=== PATIENT | male | born 1965 | race Caucasian/White ===

== ENCOUNTER 2019-12-11 15:01 | Outpatient (CLI) | payer OTHER, SELFPAY ==
[2019-12-11 16:19] LABS: Hematocrit 44.2 % (42.0-52.0); Hemoglobin 14.8 g/dL (14.0-18.0); Mean Corpuscular HGB Conc 33.5 g/dl (32-36); Mean Corpuscular Hemoglobin 29.2 pg (26-34); Mean Corpuscular Volume 87.2 fl (80-100); Mean Platelet Volume 10.3 fl (7.4-10.4); Platelet Count Result 217 k/mm3 (150-375); Red Blood Count 5.07 M/mm3 (4.6-6.20); Red Cell Distribution Width 13.1 % (11.5-14.5); White Blood Count 5.8 K/mm3 (4.5-10.0)
[2019-12-11 16:32] LABS: Alanine Aminotransferase 74 U/L (4-50); Albumin Level 4.3 g/dL (3.5-5.1); Alkaline Phosphatase 118 U/L (38-126); Anion Gap 7 mmol/L (8-16); Aspartate Amino Transferase 57 U/L (17-59); Bilirubin,Total 0.4 mg/dL (0.2-1.3); Blood Urea Nitrogen 14 mg/dL (9-20); Carbon Dioxide 28 mmol/L (22-30); Chloride 104 mmol/L (98-107); Cholesterol 180 mg/dL (0-200); Estimated Glomerular Filt Rate > 60; Glucose 110 mg/dL (75-110); HDL Direct 43 mg/dL; Potassium 4.3 mmol/L (3.4-5.0); Sodium 139 mmol/L (137-145); Triglycerides 170 mg/dL (<150)
[2019-12-11 16:43] LABS: LDL Cholesterol Direct 124 mg/dL
[2019-12-11 17:01] LABS: Prostate Specific Antigen 0.3 ng/mL (< OR = 4.0)
== END 2019-12-11 15:02 | disposition home or self-care (01) ==
PROVIDERS: PCP Family Medicine; Visit Provider Nurse Practitioner Family
DX: T14.8XXA Other injury of unspecified body region, initial encounter (principal); R21 Rash and other nonspecific skin eruption; I10 Essential (primary) hypertension; Z12.5 Encounter for screening for malignant neoplasm of prostate; F41.9 Anxiety disorder, unspecified; F32.9 Major depressive disorder, single episode, unspecified
CPT/HCPCS: 36415; 80053; 80061; 84153; 84443; 85027; G0103

== ENCOUNTER 2020-05-06 15:24 | Emergency (ER) | payer OTHER, SELFPAY ==
--- NOTE | ~2020-05-06 | XR_ITS ---
EXAMINATION: XR chest 2V EXAM DATE: 05/06/2020 16:27 INDICATION: Shortness of breath for 3 days. History of asthma. TECHNIQUE: Frontal and lateral projections of the chest obtained and reviewed. Comparison is made to prior examination from 06/09/18. FINDINGS: The lungs are clear. There are no pleural effusions. The cardiomediastinal silhouette is within normal limits. There is no pneumothorax suspected. The bones and soft tissues are unremarkab le. There is no significant interval change. IMPRESSION: No acute cardiopulmonary findings. Reviewed, dictated and finalized at location A. RESEARCH ENGINEER
[2020-05-06 16:00] VITALS: BP 129/65; PULSE 66; RESP 20; TEMP 37; O2SAT 93
--- NOTE | 2020-05-06 16:38 | ED.URI ---
HPI - URI/Sore Throat General Chief Complaint: Upper Respiratory Infection Stated Complaint: Cold/Flu symptoms Time Seen by Provider: 05/06/20 16:26 Source: patient and RN notes reviewed Mode of arrival: ambulatory Limitations: no limitations History of Present Illness HPI Narrative: Patient presents today complaining of a 3-day history of bilateral maxillary sinus pain, bilateral ear pain, postnasal drip, and shortness of breath with occasional wheezing. Denies cough, fever, sore throat, congestion, rhinorrhea, nausea, vomiting, diarrhea. History of asthma. He has been using his albuterol inhaler, which does not provide much relief. He has also been using some [id number]-[id number] sinus medication which helps mildly. Currently rates his pain 07/06. Denies exposure to COVID-19, but does work outside the home. MD elicited complaint: sinus pain and other (Shortness of breath) Related Data Home Medications Medication Instructions Recorded Confirmed omeprazole 20 mg capsule,delayed 20 mg PO BID 01/01/20 release Allergies Allergy/AdvReac Type Severity Reaction Status Date / Time No Known Allergies Allergy Verified 01/01/20 12:25 Review of Systems Review of Systems: Narrative: CONSTITUTIONAL: Denies body aches, fever, chills, or sweats. EYES: Denies visual changes, redness, or discharge. ENT: Denies rhinorrhea, congestion, sore throat. + Bilateral ear pain, postnasal drip, sinus pain CARDIOVASCULAR: Denies chest pain, palpitations, or edema. RESPIRATORY: Denies cough. + Shortness of breath with occasional wheezing GASTROINTESTINAL: Denies abdominal pain, nausea, vomiting, or diarrhea. GENITOURINARY: Denies dysuria or hematuria. SKIN: Denies rash, itching, or wounds. MUSCULOSKELETAL: Denies back pain, joint pain, or myalgia. NEUROLOGIC: Denies headache, numbness, tingling, or weakness. PSYCH: Denies depression or anxiety. [facility] Past Medical History Medical History (Updated 05/06/20 @ 17:15 by Irene Borrego, DEMOND, ) Asthma Hypertension Family History Family History Other Hypertension Social History Social History Smoking status: Never smoker Gender identity (if verbalized by the patient): Male Comments At time of signature, I have reviewed and agree with nursing past medical, surgical, social and family history unless otherwise noted. Please see nursing chart for further information. There is no relevant family history pertinent to the presenting complaint Exam Narrative: Exam Narrative: GENERAL: Well-appearing, well-nourished, and in no acute distress. HEAD: Normocephalic, atraumatic. EYES: EOMI. No redness or drainage. Conjunctivae normal. ENT: Mucous membranes pink and moist. Nares clear. Nasal turbinates are normal. No rhinorrhea. TMs normal bilaterally. Throat normal. Uvula midline. NECK: Normal AROM. Supple. No lymphadenopathy. CHEST: No respiratory distress. Clear to auscultation. Patient does not seem in any distress. HEART: Regular rate and rhythm. No murmur appreciated. Normal peripheral pulses. EXTREMITIES: Normal range of motion. No edema. SKIN: Warm, dry, no rash. Capillary refill normal. Normal skin turgor. NEURO: No focal deficits. Alert and oriented x3. Gait steady. PSYCH: Normal affect. No signs of depression or anxiety. Course Course Emergency Course: 1712-after DuoNeb, patient states he is feeling better. Pulse is 68 with a pulse ox of 94%. Discussed plan to prescribe steroids. Patient states he will get his albuterol nebs picked up at the pharmacy. Explained to him that his rapid Covid test is negative, however, that he still could have Covid and that he should be quarantining based on CDC guidelines. Vital Signs Vital signs: Vital Signs Temperature 98.6 F 05/06/20 16:00 Pulse Rate 66 05/06/20 16:00 Respiratory Rate 20 05/06/20 16:00 Blo
[2020-05-06] MEDS: ALBUTEROL SULFATE NEB 2.5 MG/3 ML INH INHALATION (16:42)
[2020-05-06] MEDS: IPRATROPIUM BR 0.02% INH SOLN 0.5 MG/2.5 ML VIAL INHALATION (16:43)
--- NOTE | 2020-05-06 17:18 | PC.NURSE ---
pulse 68 and sat 94 after neb, states feels better
== END 2020-05-06 17:35 | disposition home or self-care (01) ==
PROVIDERS: Emergency Provider Nurse Practitioner; PCP Family Medicine
DX: B34.9 Viral infection, unspecified (principal); J45.901 Unspecified asthma with (acute) exacerbation; Z20.822 Contact with and (suspected) exposure to COVID-19; I10 Essential (primary) hypertension
CPT/HCPCS: 71046; 87426; 94640; 99213; C9803; G0463

== ENCOUNTER 2020-07-03 11:25 | Emergency (ER) | payer OTHER, SELFPAY ==
[2020-07-03 11:34] VITALS: BP 143/69; PULSE 70; RESP 16; TEMP 36.8; O2SAT 98
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
[2020-07-03] MEDS: TETANUS,DIPHTHERIA,AC PERTUSSIS ADULT (0.5 ML) BOOSTRIX IM (12:16)
== END 2020-07-03 12:41 | disposition home or self-care (01) ==
PROVIDERS: Emergency Provider Nurse Practitioner; PCP Family Medicine
DX: S00.31XA Abrasion of nose, initial encounter (principal); Y04.0XXA Assault by unarmed brawl or fight, initial encounter; Z23 Encounter for immunization; J45.909 Unspecified asthma, uncomplicated; I10 Essential (primary) hypertension
CPT/HCPCS: 90471; 90715; 99212; G0463

== ENCOUNTER 2021-05-03 11:48 | Outpatient (CLI) | payer OTHER, SELFPAY ==
--- NOTE | ~2021-05-03 | XR_ITS ---
XR chest 2V DATE: 05/03/2021 12:01 INDICATION: Cough, chest tightness TECHNIQUE: PA and lateral views COMPARISON: 05/06/2020 2 view chest FINDINGS: Normal heart size. No hilar or mediastinal enlargement. No pulmonary infiltrate or consolid ation, pleural effusion or pulmonary vascular congestion or pneumothorax. Included skeletal structures are unremarkable. IMPRESSION: No active cardiopulmonary disease Reviewed, dictated and finalized at location A. EL PLANER
== END 2021-05-03 11:49 | disposition home or self-care (01) ==
LOC: ANHIMG 11:52
PROVIDERS: PCP Family Medicine; Visit Provider Nurse Practitioner Family
DX: R05.9 Cough, unspecified (principal)
CPT/HCPCS: 71046

== ENCOUNTER 2021-08-02 12:14 | Outpatient (CLI) | payer OTHER, SELFPAY ==
--- NOTE | ~2021-08-02 | XR_ITS ---
EXAM: [id number]_CR HISTORY: M54.2 LEFT SIDE AND POSTERIOR NECK PAIN, NO INJURY COMPARISON: CT soft tissue neck with contrast 09/01/2013. FINDINGS: Craniocervical association and atlantoaxial joint are normal. No prevertebral soft tissue swelling. 3 mm anterolisthesis of C6 on C7. Facets aligned. Vertebral body heights are maintained. Mi ld facet hypertrophy at C5-6 and C6-7. Mild disc space narrowing at C5-6. IMPRESSION: Grade 1 anterolisthesis of C6 on C7. Mild degenerative disc disease at C5-6. Mild facet arthropathy i n the lower cervical spine. Reviewed, dictated and finalized at location K. IMPRESSION: Grade 1 anterolisthesis of C6 on C7. Mild degenerative disc disease at C5-6. Mi ld facet arthropathy in the lower cervical spine.
[2021-08-02 12:34] LABS: Hematocrit 47.7 % (42.0-52.0); Hemoglobin 16.5 g/dL (14.0-18.0); Mean Corpuscular HGB Conc 34.6 g/dl (32-36); Mean Corpuscular Hemoglobin 29.7 pg (26-34); Mean Corpuscular Volume 85.9 fl (80-100); Mean Platelet Volume 9.8 fl (7.4-10.4); Platelet Count Result 228 k/mm3 (150-375); Red Blood Count 5.55 M/mm3 (4.6-6.20); Red Cell Distribution Width 13.5 % (11.5-14.5); White Blood Count 6.5 K/mm3 (4.5-10.0)
--- NOTE | 2021-08-02 12:35 | ECG_ITS ---
Measurements Intervals [place] Rate: 64 P: 7 NM: 188 QRS: 30 QRSD: 98 T: 42 QT: 377 QTc: 389 Interpretive Statements SINUS RHYTHM NO PREVIOUS ECG AVAILABLE FOR COMPARISON Electronically Signed On 08-02-2021 14:25:52 CDT by Leanne Reagan M.D.
[2021-08-02 12:48] LABS: Alanine Aminotransferase 63 U/L (4-50); Albumin Level 4.6 g/dL (3.5-5.1); Alkaline Phosphatase 94 U/L (38-126); Anion Gap 8 mmol/L (8-16); Aspartate Amino Transferase 52 U/L (17-59); Bilirubin,Total 0.6 mg/dL (0.2-1.3); Blood Urea Nitrogen 15 mg/dL (9-20); Calcium 9.6 mg/dL (8.4-10.2); Carbon Dioxide 27 mmol/L (22-30); Chloride 104 mmol/L (98-107); Cholesterol 215 mg/dL (0-200); Estimated Glomerular Filt Rate > 60; Glucose 106 mg/dL (65-110); HDL Direct 53 mg/dL; Potassium 4.2 mmol/L (3.4-5.0); Sodium 139 mmol/L (137-145); Triglycerides 157 mg/dL (<150)
[2021-08-02 12:49] LABS: Rheumatoid Factor < 8.6 IU/ML (<12)
[2021-08-02 12:59] LABS: LDL Cholesterol Direct 134 mg/dL
[2021-08-02 13:19] LABS: Prostate Specific Antigen 0.4 ng/mL (< OR = 4.0)
[2021-08-02 13:32] LABS: Vitamin D 25 Hydroxy 27.4 ng/mL
== END 2021-08-02 12:15 | disposition home or self-care (01) ==
PROVIDERS: PCP Family Medicine; Visit Provider Nurse Practitioner Family
DX: R07.89 Other chest pain (principal); I10 Essential (primary) hypertension; Z13.1 Encounter for screening for diabetes mellitus; M50.322 Other cervical disc degeneration at C5-C6 level; E55.9 Vitamin D deficiency, unspecified; R20.2 Paresthesia of skin; Z13.29 Encounter for screening for other suspected endocrine disorder; M25.50 Pain in unspecified joint; Z13.220 Encounter for screening for lipoid disorders; Z12.5 Encounter for screening for malignant neoplasm of prostate
CPT/HCPCS: 36415; 72040; 80053; 80061; 82306; 82607; 84153; 84443; 85027; 86430; 93005; G0103

== ENCOUNTER 2021-12-02 21:11 | Emergency (ER) | payer OTHER, SELFPAY ==
[2021-12-02] VITALS (13 sets, daily range): BP systolic 118–142; BP diastolic 62–78; PULSE 55–67; RESP 12–22; TEMP 36.4; O2SAT 91–95
--- NOTE | ~2021-12-02 | CT_ITS ---
EXAMINATION: CT abdomen pelvis wo con DATE: 12/02/2021 22:04 INDICATION: Right upper quadrant and epigastric abdominal pain, nausea. History kidney stones. TECHNIQUE: Computed tomography (CT) of the abdomen and pelvis was performed without intravenous contr ast. Automated exposure control and iterative reconstruction technique were employed. Exam dose: 661 .60 mGy-cm total exam DLP. COMPARISON: 04/2016 CT abdomen pelvis FINDINGS: The lung bases are clear of infiltrate or consolidation. Normal heart size. No pericardial or pleural effusion. Diffuse hepatic steatosis. No hepatic space-occupying mass lesion is evident. The gallbladder is pres ent. No pericholecystic fluid or fat stranding. No bile duct or pancreatic duct dilatation. Normal splenic size. Normal morphology of the adrenal glands. There are 2 punctate nonobstructing left renal calculi. No ureteral calculus or hydroureteronephrosis . There is abdominal aortic and iliac arterial calcification but no aneurysm. No intraperitoneal or ret roperitoneal or pelvic mass lesion or adenopathy or ascites. Minimal colonic diverticulosis. Normal appendix. No bowel obstruction or intraperitoneal free air. Small fat-containing inguinal hernias, right larger than left. Included skeletal structures are unremarkable. IMPRESSION: 2 pinpoint nonobstructing left renal calculi No ureteral calculus or hydroureteronephrosis Normal appendix. Minimal colonic diverticulosis. The gallbladder is present. Ultrasound examination would provide greater detail and more confident ev aluation for cholelithiasis if clinically desired. Reviewed, dictated and finalized at Location A. Reviewed, dictated and finalized at location A. IMPRESSION: 2 pinpoint nonobstructing left renal calculi No ureteral calculus or hydroureteronephrosis Normal appendix. Minimal colonic diverticulosis. The gallbladder is present. Ultrasound examination would provide greater detail and more confident evaluation for cholelithiasis if clinically desired.
--- NOTE | 2021-12-02 21:24 | ECG_ITS ---
Measurements Intervals [place] Rate: 57 P: 7 [place]: 208 QRS: 31 QRSD: 96 T: 31 QT: 409 QTc: 399 Interpretive Statements SINUS BRADYCARDIA OTHERWISE WITHIN NORMAL LIMITS NO PREVIOUS ECG AVAILABLE FOR COMPARISON Electronically Signed On 12-03-2021 8:23:46 CDT by Carlton Huang M.D.
[2021-12-02 21:35] LABS: Basophils Percent Auto 0.6 % (0.2-1.2); Eosinophils Absolute Auto 0.1 K/mm3 (0-0.3); Eosinophils Percent Auto 1.6 % (0-4.4); Hematocrit 43.9 % (42.0-52.0); Hemoglobin 14.9 g/dL (14.0-18.0); Immature Granulocyte Absolute 0.02 K/mm3 (0.00-0.031); Immature Granulocyte Percent A 0.4 % (0-0.5); Lymphocytes Absolute Auto 0.81 K/mm3 (0.9-3.2); Lymphocytes Percent Auto 16.2 % (18.3-44.2); Mean Corpuscular HGB Conc 33.9 g/dl (32-36); Mean Corpuscular Hemoglobin 29.6 pg (26-34); Mean Corpuscular Volume 87.1 fl (80-100); Mean Platelet Volume 9.9 fl (7.4-10.4); Monocytes Absolute Auto 0.3 K/mm3 (0.1-0.6); Monocytes Percent Auto 6.6 % (2.6-8.5); Neutrophils Absolute Auto 3.7 K/mm3 (1.3-6.7); Neutrophils Percent Auto 74.6 % (45.5-73.1); Platelet Count Result 196 k/mm3 (150-375); Red Blood Count 5.04 M/mm3 (4.6-6.20); Red Cell Distribution Width 13.1 % (11.5-14.5)
--- NOTE | 2021-12-02 21:42 | ED.GENADULT ---
HPI - General Adult General Chief complaint: Syncope Stated complaint: syncopal episode Time Seen by Provider: 12/02/21 21:20 History of Present Illness HPI narrative: this is a 55-year-old male presenting to the ED with abdominal pain and syncope.. The patient says he has been experiencing Sharp right-sided abdominal pain on his right flank that radiates to his groin as well as in the epigastric area since yesterday. It is 10/10 at its worst but is currently 1/10. It was sudden in onset. He says this feels similar to kidney stones in the past. There are no exacerbating or alleviating factors. The patient has noticed that he has had hematuria, fever and chills. He denies dysuria, urinary urgency frequency or diarrhea. Related Data Home Medications Medication Instructions Recorded Confirmed metoprolol tartrate 25 mg tablet mg 12/02/21 omeprazole 20 mg capsule,delayed mg 12/02/21 release sertraline 25 mg tablet mg 12/02/21 Allergies Allergy/AdvReac Type Severity Reaction Status Date / Time No Known Allergies Allergy Verified 12/02/21 21:18 Review of Systems Review of Systems: CONSTITUTIONAL: Denies night sweats. EYES: No eye pain ENT: Denies rhinorrhea CARDIOVASCULAR: Denies palpitations RESPIRATORY: Denies hemoptysis GASTROINTESTINAL: Denies hematemesis GENITOURINARY: Admits hematuria. SKIN: Denies rash MUSCULOSKELETAL: Denies myalgia. NEUROLOGIC: Denies weakness. PSYCHIATRIC: Denies delusions PMFSH Past Medical History Medical History (Updated 12/02/21 @ 23:51 by Jono Lauren MD) Kidney stones Pericarditis Ulcerative colitis Social History Social History (Updated 12/02/21 @ 21:46 by Jono Lauren MD) Social History: patient denies use of alcohol cigarettes or illicit drugs. Exam Narrative: APPEARANCE: No apparent distress. Head atraumatic. EYES: PERRLA/EOMI, NOSE: Normal no drainage NECK: Supple, Trachea midline RESPIRATORY: CTAB, No increased work of breathing. CARDIOVASCULAR: S1S2 appreciated ABDOMINAL: Abdomen is with vitamin B12 distended, he has tenderness to palpation the right upper quadrant and epigastric area. There is no guarding or rebound. MUSCULOSKELETAl: No obvious deformities NEURO: Alert. Moving 4/4 extremities SKIN:: Warm, dry. Normal color PSYCHIATRIC: Normal affect EKG interpretation: Rhythm [sinus], Rate 57, [place] -[normal], [place] -[normal], QRS [narrow], QTC [normal], T waves -[negative for concerning inversions], ST Segments - [Negative for concerning elevations] Final interpretations: [Normal Sinus Rhythm] Course Vital Signs Vital signs: Vital Signs Temperature 97.6 F 12/02/21 21:09 Pulse Rate 59 L 12/02/21 21:09 Respiratory Rate 14 12/02/21 21:09 Blood Pressure 128/78 12/02/21 21:09 Pulse Oximetry 95 12/02/21 21:09 Oxygen Delivery Room Air 12/02/21 21:09 Temperature 97.6 F 12/02/21 21:09 Pulse Rate 66 12/02/21 22:36 Respiratory Rate 19 12/02/21 22:36 Blood Pressure 127/68 12/02/21 21:42 Pulse Oximetry 95 12/02/21 22:36 Oxygen Delivery Room Air 12/02/21 21:09 Medical Decision Making MDM Narrative Medical decision making narrative: 55-year-old male presenting to ED after syncopal event. Syncopal event after happen after the patient had a bowel movement. He then laid on the floor. His other complaint appears to be abdominal pain that is consistent with kidney stones. Lab work and a CT abdomen pelvis have been ordered. The patient's syncopal event occurred after he was having a bowel movement on the toilet. Patient's episode of syncope is not felt to be due to high risk cause. The event was brief, and the patient has returned to normal mental status. EKG is reviewed with without high risk changes for syncope. There are no signs of prolonged QT or Brugada syndrome. Patient ambulates with steady gait is felt to be a reasonable candidate for further evaluation on an outpatient ba
[2021-12-02 21:44] LABS: Alanine Aminotransferase 367 U/L (6-50); Albumin Level 4.1 g/dL (3.5-5.1); Alkaline Phosphatase 124 U/L (38-126); Anion Gap 8 mmol/L (8-16); Aspartate Amino Transferase 490 U/L (17-59); Bilirubin,Total 2.7 mg/dL (0.2-1.3); Blood Urea Nitrogen 11 mg/dL (9-20); Calcium 9.2 mg/dL (8.4-10.2); Carbon Dioxide 25 mmol/L (22-30); Chloride 105 mmol/L (98-107); Estimated CRCL calculation 88 ml/min; Estimated Glomerular Filt Rate > 60; Glucose 160 mg/dL (65-110); Potassium 3.8 mmol/L (3.4-5.0); Sodium 138 mmol/L (137-145)
[2021-12-02] MEDS: ACETAMINOPHEN 500 MG TABLET 1000 MG PO (21:56)
[2021-12-02] MEDS: SODIUM CHLORIDE 0.9% IV 1,000 ML 999 ML IV CONT (21:56)
[2021-12-02] MEDS: IBUPROFEN 400 MG TABLET 800 MG PO (21:56)
--- NOTE | 2021-12-02 21:57 | PC.NURSE ---
Patient being taken to CT via stretcher.
[2021-12-02 22:10] LABS: Lipase 88 U/L (23-300)
[2021-12-02 22:13] LABS: Appearance Urine Clear (Clear); Bilirubin Urine 2+ (Negative); Blood Urine Negative (Negative); Color Urine Yellow (Yellow); Glucose Urine UA Negative (Negative); Ketones Urine Trace mg/dL (Negative); Leukocyte Esterase Ur Negative LEU/UL (Negative); Nitrate Urine Negative (Negative); Protein Urine Negative (Negative); Specific Grav Ur >= 1.030 (1.001-1.035); pH Urine 5.5 (5.0-9.0)
[2021-12-02 22:17] LABS: Bacteria Urine Trace /hpf; Mucus Urine Rare /lpf; RBC Urine 0-2 /hpf (0-2); Squamous Epithelial Cell Urine Rare /hpf (Few); WBC Urine 0-3 /hpf
[2021-12-02 22:18] LABS: Add Urine Microscopic? YES
[2021-12-02 22:22] LABS: Troponin I < 0.012 ng/mL (0.000-0.034)
[2021-12-03 00:04] VITALS: BP 129/76; PULSE 91; RESP 20; O2SAT 94
== END 2021-12-03 00:05 | disposition home or self-care (01) ==
PROVIDERS: Emergency Provider Emergency Medicine; PCP Family Medicine
DX: R55 Syncope and collapse (principal); K76.0 Fatty (change of) liver, not elsewhere classified; Z87.442 Personal history of urinary calculi; R00.1 Bradycardia, unspecified
CPT/HCPCS: 36415; 74176; 80053; 81001; 83690; 84484; 85025; 93005; 96360; 99284; A9270; J7030

== ENCOUNTER 2021-12-05 10:57 | Outpatient (CLI) | payer OTHER, SELFPAY ==
[2021-12-05 11:32] LABS: Alanine Aminotransferase 157 U/L (6-50); Albumin Level 4.2 g/dL (3.5-5.1); Alkaline Phosphatase 110 U/L (38-126); Anion Gap 9 mmol/L (8-16); Aspartate Amino Transferase 61 U/L (17-59); Bilirubin,Total 0.6 mg/dL (0.2-1.3); Blood Urea Nitrogen 12 mg/dL (9-20); Calcium 9.1 mg/dL (8.4-10.2); Carbon Dioxide 25 mmol/L (22-30); Chloride 103 mmol/L (98-107); Estimated Glomerular Filt Rate > 60; Glucose 119 mg/dL (65-110); Potassium 3.7 mmol/L (3.4-5.0); Sodium 137 mmol/L (137-145)
== END 2021-12-05 10:58 | disposition home or self-care (01) ==
LOC: ANHLAB 10:59
PROVIDERS: PCP Family Medicine; Visit Provider Nurse Practitioner Family
DX: R74.8 Abnormal levels of other serum enzymes (principal)
CPT/HCPCS: 36415; 80053

== ENCOUNTER 2021-12-26 10:26 | Outpatient (CLI) | payer OTHER, SELFPAY ==
--- NOTE | ~2021-12-26 | MR_ITS ---
EXAMINATION: MR MRCP wo/w con/w 3D wo ind DATE: 12/26/2021 12:10 INDICATION: Abnormal levels of other serum enzymes. Hepatic steatosis. TECHNIQUE: Magnetic resonance imaging (MRI) of the abdomen was performed without and with 20 mL Multi beatrice intravenous contrast. Sequences included coronal T2-weighted SS-FSE, coronal T2-weighted FS SS- FSE, coronal T2-weighted FS FIESTA, axial T2-weighted FS FIESTA, axial T2-weighted FIESTA, sagittal T 2-weighted SS-FSE, axial T1-weighted dual-echo FSPGR, axial T2-weighted SS-FSE, axial T1-weighted LAV A, axial T2-weighted STIR FSE. Thick-slab T2-weighted FRFSE-XL images were obtained for magnetic reso nance cholangiopancreatography (MRCP). Rotating maximum intensity projection 3-D reconstructions of t he volumetric data were created by the technologist. Postcontrast sequences included a time course of axial T1-weighted LAVA. COMPARISON: CT dated 12/02/2021 FINDINGS: ABDOMEN MRI: Heart size is normal. No pericardial or pleural effusion. Prominent diffuse hepatic steatosis. 2.1 cm gallstones surrounded by small amount of sludge layering in the dependent aspect of the otherwise no rmal-appearing gallbladder. No gallbladder wall thickening or pericholecystic infiltrate stranding to suggest acute cholecystitis. Pancreas, spleen and adjacent small splenule, bilateral adrenal glands and kidneys are normal. Visualized portion of the bowels are normal. No pathologically enlarged abdom inal adenopathy. Bones are unremarkable with normal marrow signal throughout. ABDOMEN MRCP: No intrahepatic biliary ductal dilation. The common bile duct is normal in caliber measuring up to 5 mm and tapering smoothly in the distal duct. No evident filling defects to suggest choledocholithiasi s. The main pancreatic duct is also normal. IMPRESSION: 1. Sludge and 2.1 cm gallstone within the otherwise normal-appearing gallbladder. 2. Diffuse hepatic steatosis. Reviewed, dictated and finalized at location A. IMPRESSION: 1. Sludge and 2.1 cm gallstone within the otherwise normal-appearing gallbladde r. 2. Diffuse hepatic steatosis.
== END 2021-12-26 10:27 | disposition home or self-care (01) ==
PROVIDERS: PCP Family Medicine; Visit Provider Nurse Practitioner Family
DX: R10.11 Right upper quadrant pain (principal); R74.8 Abnormal levels of other serum enzymes; K83.9 Disease of biliary tract, unspecified; K80.20 Calculus of gallbladder without cholecystitis without obstruction; K76.0 Fatty (change of) liver, not elsewhere classified
CPT/HCPCS: 74183; 76376; A9577

== ENCOUNTER 2022-01-05 14:11 | Outpatient (CLI) | payer OTHER, SELFPAY ==
--- NOTE | 2022-01-05 14:24 | ECG_ITS ---
Measurements Intervals [place] Rate: 74 P: 34 [place]: 188 QRS: 57 QRSD: 102 T: 65 QT: 379 QTc: 422 Interpretive Statements SINUS RHYTHM BASELINE ARTIFACT- I, II, III, AVR, AVL, AVF NORMAL ECG COMPARED TO ECG 08/02/2021 12:41:23 NO SIGNIFICANT CHANGES Electronically Signed On 01-05-2022 16:25:16 CDT by Tyler Faust D.O.
[2022-01-05 14:51] LABS: Basophils Percent Auto 0.7 % (0.2-1.2); Eosinophils Absolute Auto 0.2 K/mm3 (0-0.3); Eosinophils Percent Auto 2.8 % (0-4.4); Hemoglobin 15.9 g/dL (14.0-18.0); Immature Granulocyte Absolute 0.02 K/mm3 (0.00-0.031); Immature Granulocyte Percent A 0.4 % (0-0.5); Lymphocytes Absolute Auto 1.91 K/mm3 (0.9-3.2); Lymphocytes Percent Auto 33.7 % (18.3-44.2); Mean Corpuscular HGB Conc 34.6 g/dl (32-36); Mean Corpuscular Hemoglobin 29.4 pg (26-34); Mean Platelet Volume 9.8 fl (7.4-10.4); Monocytes Absolute Auto 0.4 K/mm3 (0.1-0.6); Monocytes Percent Auto 6.2 % (2.6-8.5); Neutrophils Absolute Auto 3.2 K/mm3 (1.3-6.7); Neutrophils Percent Auto 56.2 % (45.5-73.1); Platelet Count Result 225 k/mm3 (150-375); Red Blood Count 5.41 M/mm3 (4.6-6.20); Red Cell Distribution Width 12.9 % (11.5-14.5); White Blood Count 5.7 K/mm3 (4.5-10.0)
[2022-01-05 15:02] LABS: Alanine Aminotransferase 107 U/L (6-50); Albumin Level 4.7 g/dL (3.5-5.1); Alkaline Phosphatase 97 U/L (38-126); Amylase 102 U/L (30-110); Anion Gap 14 mmol/L (8-16); Aspartate Amino Transferase 86 U/L (17-59); Bilirubin,Total 0.9 mg/dL (0.2-1.3); Blood Urea Nitrogen 13 mg/dL (9-20); Calcium 9.4 mg/dL (8.4-10.2); Carbon Dioxide 25 mmol/L (22-30); Chloride 103 mmol/L (98-107); Estimated Glomerular Filt Rate > 60; Glucose 124 mg/dL (65-110); Lipase 77 U/L (23-300); Potassium 3.8 mmol/L (3.4-5.0); Sodium 142 mmol/L (137-145)
== END 2022-01-05 14:12 | disposition home or self-care (01) ==
PROVIDERS: PCP Family Medicine; Referring Provider Anesthesiology; Visit Provider Surgery
DX: Z01.818 Encounter for other preprocedural examination (principal); K80.10 Calculus of gallbladder with chronic cholecystitis without obstruction; I10 Essential (primary) hypertension
CPT/HCPCS: 36415; 80053; 82150; 83690; 85025; 93005

== ENCOUNTER 2022-01-08 01:11 | Day surgery (SDC) | payer OTHER, SELFPAY ==
[2022-01-05 13:17] VITALS: BMI 37.6
--- NOTE | 2022-01-05 13:23 | PC.NURSE ---
Addendum entered by Jamaal Palma RN 01/05/22 13:34: Take Metoprolol and Sertraline morning of surgery. Original Note: Report to the Outpatient Waiting Room, entrance under the green pavilion located off [address], at time _1100_ on date _[id number]_. OR Time: _1pm_. Time changes happen often and if your time is changed the preop area will call you the afternoon before. - You and your visitor will be asked to self-screen and do not enter if you have any COVID symptoms. - Only one visitor and NO children visitors are allowed at this time. - The patient visitor is requested to leave or wait in car when not with patient due to restrictions. - A mask is required within the hospital. Patients may have clear liquids (water, carbonated beverages, clear teas, apple juice) until 3 hours prior to surgery with a maximum of 20 ounces. - No food from midnight until time of surgery Take the following medications with a SIP of water the morning of surgery: Medications to discontinue per physician Date to take last dose Please no make-up, nail malay, hairspray, perfume, deodorant, or body powder the day of surgery. No jewelry (including any body piercings) or valuables the day of surgery, leave them at home. Please take a shower or bath the night before, or the morning of, surgery with an antibacterial soap. Wear comfortable, loose fitting clothing. - Jewelry must be removed prior to entering the operating room. Rings and piercings that are not removed may be cut off. - The hospital will not accept responsibility for valuables. - Please leave all valuables, including medications, at home the day of surgery. If you are going home after surgery, a licensed racing driver must drive you home. - NO public transportation without another adult. - We recommend that an adult stay with you for 24 hours following discharge. - We also recommend that you do not drive, make important decision, drink alcoholic beverages, or take any drugs that were not prescribed by your health care provider for at least 24 hours after your discharge time. Follow any additional instructions given to you from your surgeon. If you or anyone in your household have experienced Covid symptoms in the past week, please notify your surgeon or the nurse liaison at the phone number below for possible testing. Telephone instructions given to __Patient___and asked if any additional questions and then verbalized understanding. Patient advised to call surgeon office or pre surgery nurse liaison [phone] if any additional questions.
[2022-01-08] VITALS (9 sets, daily range): BP systolic 112–152; BP diastolic 58–81; PULSE 57–85; RESP 16–21; TEMP 36.6; O2SAT 92–97
--- NOTE | 2022-01-08 11:37 | WPDANESEPPF ---
Anes - Initial Pre Proc Eval Procedure: Operation Date: 01/08/22 13:00 Proposed Procedures p Laparoscopic Cholecystectomy Possible Intraoperative Cholangiogram, Possible Open, and Core Biopsy of Right Lobe of Liver - Jonathan Baum MD Date/Time: 01/08/22 11:37 Surgeon: Jonathan Baum MD Pre Op Diagnosis: chronic cholecystitis with cholelithiasis Patient Data Age: 56 Gender: M Height: 1.7 m Weight: 105.1 kg Allergies Allergy/AdvReac Type Severity Reaction Status Date / Time No Known Allergies Allergy Verified 01/08/22 11:08 Home Medications Medication Instructions Recorded Confirmed Type omeprazole 20 mg capsule,delayed 20 mg PO BID 01/01/20 01/08/22 History release metoprolol succinate 25 mg 25 mg PO DAILY #90 tabs 05/07/21 01/08/22 Rx tablet,extended release 24 hr fluticasone propionate 50 1 spray intranasal DAILY #16 grams 06/06/21 01/08/22 Rx mcg/actuation nasal spray,suspension (Flonase Allergy Relief) albuterol sulfate 90 mcg/actuation 1 inh inhalation Q4H PRN shortness 12/05/21 01/08/22 Rx aerosol inhaler (ProAir HFA) of breath or wheezing #8.5 grams sertraline 50 mg tablet See Rx Instructions .Route 12/05/21 01/08/22 Rx .COMPLEX #90 tabs Patient hx anesthesia problems: none Family hx anesthesia problems: none Results Review: All pre-operative results and documents have been reviewed as part of the pre-operative evaluation. [facility] Past Medical History Medical History (Updated 01/08/22 @ 11:38 by John Ball MD) Asthma BMI 37.0-37.9, adult GERD (gastroesophageal reflux disease) Hypertension Kidney stones Pericarditis Snoring likely JAMAAL based on H&P Ulcerative colitis Family History Family History Father No problems noted. Mother No problems noted. Sibling Rheumatoid arthritis Other Hypertension Social History Social History Social History: patient denies use of alcohol cigarettes or illicit drugs. Smoking packs per day: 1 Smoking cigarettes per day: 20.0 Years smoked: 10 Smoking pack-years: 10.00 Smoking status: Former smoker Second hand tobacco smoke exposure: Yes Smoking end date: 01/05/02 Alcohol intake: former Substance use: never Substance use type: does not use Living arrangements: with family Additional occupation/education comments: [employer]. Gender identity (if verbalized by the patient): Male Sexual Orientation (if Verbalized by the Patient): Straight or Heterosexual Spiritual care concerns: No Anes - Eval Final PreProcedure Day of Procedure 01/08/22 11:37 Patient weight: obese Heart: regular rate and rhythm Lungs: clear to auscultation Airway: Mallampati scale class II Neurological: alert and oriented Last oral intake: >/= 8 hours ASA classification: III Emergent: no Anesthetic plan: proceed Anesthesia type and monitoring: general ETT and standard monitoring Results Review: All pre-operative results and documents have been reviewed as part of the pre-operative evaluation. Informed Consent: The patient's anesthetic plan and its attendant risks and benefits were discussed with the patient/family/POA. Questions were solicited and answers provided to the satisfaction of the patient/family/POA.
[2022-01-08] MEDS: LACTATED RINGERS 1,000 ML 30 ML IV CONT ×2 (12:39→16:45)
[2022-01-08] MEDS: ACETAMINOPHEN 500 MG TABLET 1000 MG PO (12:40)
[2022-01-08] MEDS: KETOROLAC 15 MG/ML VIAL (*BKC) IV PUSH (12:42)
--- NOTE | 2022-01-08 14:51 | WPDHPUPDATE1 ---
History and Physical Update Update Date/Time: 01/08/22 14:51 History and Physical has been reviewed, including an updated exam of the patient. There are NO changes in the patient's condition. Risks, benefits, and alternatives have been discussed and questions answered. Patient agrees to proceed with procedure.
[2022-01-08] MEDS: ceFAZolin 2 GM/D5W 50 ML 2 GM/50 ML BAG IVPB (15:04)
[2022-01-08] MEDS: BUPIVACAINE/EPINEPHRINE 0.25% 50 ML VIAL 30 ML INFILTRATE (15:36)
--- NOTE | 2022-01-08 16:50 | W.PM.PROC2 ---
Procedure Note - Detailed Date of Procedure 01/08/22 Pre-op Diagnosis 1. chronic cholecystitis with cholelithiasis 2. Suspected hepatosteatosis by CT Post-op Diagnosis Same Procedure Performed 1. Laproscopic Cholecystectomy. 2. Laparoscopic guided Bandar-Cut core biopsy of right lobe liver. Surgeon Jonathan Baum MD Peanut [employer] Evette WOODARD.OR assistant to the vice president Anesthesia General Indications Periodic moderate to severe indigestion and several episodes of severe right upper quadrant pain radiating to the back. (See H&P). Patient had gallstones and sludge by MRCP. Findings Long fair lungs fairly normal appearing gallbladder with palpable stones upon removal. Description of Procedure Patient was seen preoperatively in the holding area and risks, benefits and alternatives confirmed. Patient was taken to the operating room and general anesthesia was induced. A time out was then preformed with the surgery team confirming patient and site of surgery. The abdomen was prepped and draped in the usual sterile fashion. Incision was made just below the umbilicus with an 11 blade knife. I placed 2 stay sutures of O- Vicryl on either side of the mid-line fascia beneath the umbilicus and was then able to slide in the Mueller cannula through the fascial defect into the peritoneum. First under low flow and then under high flow the abdomen was insufflated with carbon dioxide never exceeding a pressure of 14. Three 5 mm trocars were then introduced under direct vision. The following trocars were introduced under direct vision: a 5 mm in the epigastrium and two 5 mm trocars along the right costal margin laterally in the subcostal area. There were not any adhesions to the underside of the gallbladder. I then carefully used the L-shaped cautery and the [place] dissector to dissect out the triangle of Calot. I then was able to dissect out both the cystic duct and cystic artery and identify a window of safety. The gall bladder was grasped and the cystic duct and artery were dissected free and clipped with an 5 mm endo-clip door to door selling agent. The cystic duct and artery were clipped with use of 2 clips on the patient's side 1 on the gallbladder side utilizing a 5 mm endoclip-door to door selling agent. The cystic duct was then transected. The cystic artery was also transected at this point. The gall bladder was removed using electrocautery and then removed from the abdomen using an endobag . (I did get a small hole in the back wall of the gallbladder during excision from the gallbladder bed. I suctioned away most the bile from the gallbladder when this happened and no stones escaped that we could see. ). Order to get the large stone out of the abdomen within the gallbladder I did make the fascial defect slightly larger with Sims scissors. After removing the gallbladder from the umbilical port site, we carefully repositioned the 12 mm Mueller cannula and placed the 5 mm camera at this site. I then removed the midline subcostal port and through this opening placed a Bandar-Cut 16 gauge dual action liver biopsy needle. Two cores were removed from the anterior surface of the right lobe of the liver. Also noted was as we removed the gallbladder from the upper end of the attachments to liver a small piece of liver was excised attached to the gallbladder. This was noted on the pathology sheet so the pathologist could also take some slides of the liver near the gallbladder. Each time after placing the needle the cautery on the right angle hook was placed on the exit site of the needle and small amount of cautery applied to the area there was no bleeding after we passed the needle several times and used this for hemostasis. Following this we reinspected the gallbladder bed and the flor hepatis. We irrigated with saline and suctioned away all the fluid. The trocars were removed visualizing hemostasis and the remaining gas evacuated. The large trocar site at the umbilicus was closed with use of the 2 stay sutures of 0
[2022-01-08] MEDS: fentaNYL CITRATE INJ (*CRX) 100 MCG/2 ML VIAL 25 MCG IV PUSH ×3 (17:03→17:12)
[2022-01-08] MEDS: oxyCODONE HCL (*CRX) 5 MG TAB IR PO (17:52)
== END 2022-01-08 18:45 | disposition home or self-care (01) ==
PROVIDERS: PCP Family Medicine; Visit Provider Surgery
PROC: 0FT44ZZ Resection of Gallbladder, Percutaneous Endoscopic Approach (ICD-10-PCS; CPT 47562; principal; 2022-01-08 13:00)
DX: K80.10 Calculus of gallbladder with chronic cholecystitis without obstruction (principal); K75.81 Nonalcoholic steatohepatitis (NASH); I10 Essential (primary) hypertension; J45.909 Unspecified asthma, uncomplicated; K21.9 Gastro-esophageal reflux disease without esophagitis; Z79.51 Long term (current) use of inhaled steroids; Z87.891 Personal history of nicotine dependence; E66.9 Obesity, unspecified; Z68.36 Body mass index [BMI] 36.0-36.9, adult
CPT/HCPCS: 47379; 47562; 36415; 80053; 82150; 83690; 85025; 88304; 88307; 88312; 88313; 93005; A9270; J0690; J1100; J1885; J2250; J2405; J2704; J3010; J7030; J7120

== ENCOUNTER 2024-04-21 08:12 | Outpatient (CLI) | payer OTHER, SELFPAY ==
--- NOTE | ~2024-04-21 | XR_ITS ---
EXAMINATION: XR chest 2V DATE: 04/21/2024 08:39 INDICATION: Shortness of breath. TECHNIQUE: Frontal and lateral views of the chest were obtained. COMPARISON: Chest 2 views 05/03/21 FINDINGS: There is no pneumonia, pleural effusion, or pneumothorax. The heart size is normal. There a re surgical clips in the abdomen. IMPRESSION: 1. No acute cardiopulmonary disease. Reviewed, dictated and finalized at location A. 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
[2024-04-21 08:49] LABS: Basophils Percent Auto 0.7 % (0.2-1.2); Eosinophils Absolute Auto 0.2 K/mm3 (0-0.3); Hematocrit 44.9 % (42.0-52.0); Hemoglobin 15.2 g/dL (14.0-18.0); Immature Granulocyte Absolute 0.03 K/mm3 (0.00-0.031); Immature Granulocyte Percent A 0.5 % (0-0.5); Lymphocytes Absolute Auto 1.82 K/mm3 (0.9-3.2); Mean Corpuscular HGB Conc 33.9 g/dl (32-36); Mean Corpuscular Hemoglobin 29.2 pg (26-34); Mean Corpuscular Volume 86.3 fl (80-100); Mean Platelet Volume 9.9 fl (7.4-10.4); Monocytes Absolute Auto 0.5 K/mm3 (0.1-0.6); Monocytes Percent Auto 7.9 % (2.6-8.5); Neutrophils Absolute Auto 3.2 K/mm3 (1.3-6.7); Neutrophils Percent Auto 55.9 % (45.5-73.1); Platelet Count Result 212 k/mm3 (150-375); Red Cell Distribution Width 12.9 % (11.5-14.5); White Blood Count 5.7 K/mm3 (4.5-10.0)
[2024-04-21 09:02] LABS: Alanine Aminotransferase 54 U/L (6-50); Albumin Level 4.2 g/dL (3.5-5.1); Alkaline Phosphatase 109 U/L (38-126); Anion Gap 2 mmol/L (4-12); Aspartate Amino Transferase 55 U/L (17-59); Bilirubin,Total 0.7 mg/dL (0.2-1.3); Blood Urea Nitrogen 13 mg/dL (9-20); Calcium 9.4 mg/dL (8.4-10.2); Carbon Dioxide 30 mmol/L (22-30); Chloride 105 mmol/L (98-107); Cholesterol 200 mg/dL (0-200); Estimated Glomerular Filt Rate > 60; Glucose 114 mg/dL (65-110); HDL Direct 45 mg/dL; Potassium 4.2 mmol/L (3.4-5.0); Sodium 137 mmol/L (137-145); Triglycerides 153 mg/dL (<150)
[2024-04-21 09:14] LABS: LDL Cholesterol Direct 123 mg/dL
[2024-04-21 09:30] LABS: Prostate Specific Antigen 0.8 ng/mL (< OR = 4.0)
[2024-04-21 09:31] LABS: Vitamin D 25 Hydroxy 14.8 ng/mL
== END 2024-04-21 08:13 | disposition home or self-care (01) ==
LOC: ANHLAB 08:14
PROVIDERS: PCP Family Medicine
DX: R06.02 Shortness of breath (principal); Z13.0 Encounter for screening for diseases of the blood and blood-forming organs and certain disorders involving the immune mechanism; Z12.5 Encounter for screening for malignant neoplasm of prostate; Z13.29 Encounter for screening for other suspected endocrine disorder; E55.9 Vitamin D deficiency, unspecified; Z13.220 Encounter for screening for lipoid disorders; Z13.1 Encounter for screening for diabetes mellitus; Z77.090 Contact with and (suspected) exposure to asbestos
CPT/HCPCS: 36415; 71046; 80053; 80061; 82306; 84153; 84443; 85025; G0103

== ENCOUNTER 2024-04-30 12:40 | Outpatient (CLI) | payer OTHER, SELFPAY | END 2024-04-30 12:41 | disposition home or self-care (01) | PROVIDERS: PCP Family Medicine | DX: R06.02 Shortness of breath (principal); Z77.090 Contact with and (suspected) exposure to asbestos | CPT/HCPCS: 94060; 94726; 94729 ==

== ENCOUNTER 2024-06-04 10:11 | Emergency (ER) | payer OTHER, SELFPAY ==
[2024-06-04 10:22] VITALS: BP 119/73; PULSE 67; RESP 16; TEMP 37.3; O2SAT 97
--- NOTE | 2024-06-04 10:25 | ED.URI ---
HPI - URI/Sore Throat General Chief Complaint: Upper Respiratory Infection Stated Complaint: Nausea, Body aches, congestion Time Seen by Provider: 06/04/24 10:25 Source: patient Mode of arrival: ambulatory Limitations: no limitations History of Present Illness HPI Narrative: 58-year-old male presents with complaint of cough, congestion, fever, nausea and vomiting for 4 days. Last vomited yesterday. Taking aijg-pvc-iagthgo medications to treat symptoms. Reports fatigue, body aches and chills. All systems reviewed and negative except as noted above. Related Data Home Medications ?Medication ?Instructions ?Recorded ?Confirmed ?Last Taken ?Type omeprazole 20 mg capsule,delayed 20 mg PO BID 01/01/20 06/04/24 01/08/22 08:00 History release Allergies Allergy/AdvReac Type Severity Reaction Status Date / Time No Known Allergies Allergy Verified 06/04/24 10:20 Review of Systems Review of Systems: CONSTITUTIONAL: Reports fever, chills, or sweats. EYES: Denies visual changes, redness, or discharge. ENT: Denies rhinorrhea, congestion, sore throat, or otalgia. CARDIOVASCULAR: Denies chest pain, palpitations, or edema. RESPIRATORY: Reports cough. Denies dyspnea. GASTROINTESTINAL: Denies abdominal pain. Reports nausea, vomiting. Denies diarrhea. GENITOURINARY: Denies dysuria or hematuria. SKIN: Denies rash or itching. MUSCULOSKELETAL: Denies back pain, joint pain, or myalgia. NEUROLOGIC: Denies headache, numbness, or weakness. PSYCHIATRIC: Denies anxiety or depression. All other systems reviewed are negative, except as documented in HPI. [facility] Past Medical History Medical History BMI 36.0-36.9,adult Snoring likely JAMAAL based on H&P GERD (gastroesophageal reflux disease) Ulcerative colitis Pericarditis Kidney stones BMI 37.0-37.9, adult Asthma Hypertension Surgical History Surgical History History of laparoscopic cholecystectomy 01/08/2022 - laparoscopic cholecystectomy with laparoscopic-guided Bandar-Cut core biopsy of right lobe liver Family History Family History Father No problems noted. Mother Hypertension Sibling Rheumatoid arthritis Social History Social History Social History: patient denies use of alcohol cigarettes or illicit drugs. 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 Gender identity (if verbalized by the patient): Male Sexual Orientation (if Verbalized by the Patient): Straight or Heterosexual Spiritual care concerns: No Comments At time of signature, agree with nursing past medical, surgical, social and family history. There is no relevant family history pertinent to the presenting complaint. Exam Narrative: GENERAL: This is a well-nourished, well-developed patient, patient ill-appearing but no acute distress HEAD: normocephalic, atraumatic. EYES: PERRL. Sclera clear/white. Vision is grossly intact. EARS: External ears normal, auditory canals clear and without drainage, TMs normal without perforation. Hearing grossly intact. NOSE: External nose normal with clear nasal drainage, nares without redness or swelling THROAT: Mucous membranes moist, posterior pharynx clear. NECK: Neck supple, non-tender without lymphadenopathy, masses or thyromegaly. CARDIOVASCULAR: Regular rate and rhythm without murmurs, gallops, or rubs. RESPIRATORY: Clear to auscultation. Breath sounds equal bilaterally. No wheezes, rales, or rhonchi. GASTROINTESTINAL: Abdomen soft, non-tender, nondistended. Bowel sounds are active. No hepato-splenomegaly, or palpable masses. No guarding. SKIN: warm, Dry, intact with no suspicious lesions or rash, good texture and turgor. NEURO: awake, alert, and oriented to person, place and time. There were no obvious focal neurologic abnormalities. EXTREMITIES: No joint tenderness, effusion, or edema noted. Course Course Level of Care: Express Care Visit Vital Signs Vital signs: Vital Signs Temperature 37.3 C 06/04/24 10:22 Pulse Rate 67 06/04/24 10:22 Respiratory Rate 16 06/04/24 10:22 Blood Pressure 119/73 06/04/24 10:22 Pulse Oximetry 97 06/04/24 10:22 Temperature 37.3 C 06/04/24 10:22 Pulse Rate 67 06/04/24 10:22 Respiratory Rate 16 06/04/24 10:22 Blood Pressure 119/73 06/04/24 10:22 Pulse Oximetry 97 06/04/24 10:22 Reviewed MDM - URI/Sore Throat MDM Narrative Medical decision making narrative: Positive influenza a. Lungs clear to auscultation. Will treat patient's nausea and vomiting with Zofran. Given benzonatate for cough. Patient is alert, nontoxic. Vital Signs hemodynamically stable. Patient is aware of diagnosis, understands and agrees to treatment plan. Anticipatory guidance given. Patient agrees to follow-up as directed and is aware of reasons to seek care at the emergency department. Portions of this record may have been created with voice recognition software Differential Diagnosis Differential diagnosis: Likely upper respiratory infection, sinusitis, viral infection and influenza Lab Data Labs: Lab Results 06/04/24 06/04/24 Range/Units 10:30 10:46 POC Urine Color Yellow POC Urine Clarity Clear POC Urine pH 6.5 POC Ur Specif [place] 1.025 POC Urine Protein 1+ (Negative) POC Ur Glucose (UA) Negative (Negative) POC Urine Ketones Negative (Negative) POC Urine Blood 1+ (Negative) POC Urine Nitrite Negative (Negative) POC Urine Bilirubin Negative (Negative) POC Urine Urobilinogen 0.2 POC U Leukocyte Esteras Negative (Negative) POC Influenza A Ag Positive (Negative) POC Influenza B Ag Negative (Negative) POC SARS CoV-2 Ag Negative (Negative) Discharge Plan Discharge Clinical Impression: Influenza A Patient Disposition: Home, Self-Care Condition: Stable Instructions: Influenza (ED) Additional Instructions: Your influenza test was positive today. Influenza is a virus and symptoms may last 10-14 days. Take medications as prescribed. Take ibuprofen or Tylenol every 6-8 hours as needed for pain and fever. May take pghd-gac-opglokn pseudoephedrine as directed on packaging to treat congestion. Drink at least 64 oz water a day. Follow-up with your primary care physician if symptoms are not improving. Patient Language: Bruneian Prescriptions: New benzonatate 200 mg capsule 200 mg PO TID PRN (Reason: cough) Qty: 20 0RF ondansetron 4 mg tablet,disintegrating 4 mg PO Q8H PRN (Reason: nausea and vomiting) Qty: 12 0RF No Action omeprazole 20 mg capsule,delayed release(DR/EC) 20 mg PO BID fluticasone propionate [Flonase Allergy Relief] 50 mcg/actuation spray,suspension 1 spray intranasal DAILY Qty: 16 0RF Rx Instructions: administer into each nostril metoprolol succinate 25 mg tablet extended release 24 hr 25 mg PO DAILY Qty: 90 0RF Rx Instructions: takes at hs sertraline 50 mg tablet See Rx Instructions .ROUTE .COMPLEX Qty: 90 0RF Dose Instruction: TAKE 1 TABLET BY MOUTH EVERY DAY Rx Instructions: TAKE 1 TABLET BY MOUTH EVERY DAY at hs cholecalciferol (vitamin D3) 1,250 mcg (50,000 unit) capsule 1,250 mcg PO WEEKLY Qty: 8 0RF Airsupra 90-80 mcg/actuation HFA aerosol inhaler 2 inh inhalation 6XD PRN (Reason: shortness of breath) Qty: 5.9 4RF Follow-up/Referrals: Micheal Gross MD [Primary Care Provider] - Stand Alone Forms: Work/School Release IP Time of Disposition: 10:37
[2024-06-04 10:34] LABS: EDINFLUASCREEN Positive (Negative); EDINFLUBSCREEN Negative (Negative); EDUAAPPEAR Clear; EDUABILI Negative (Negative); EDUABLOOD 1+ (Negative); EDUACOLOR1 Yellow; EDUAGLUCOSE Negative (Negative); EDUAKETONE Negative (Negative); EDUALEUKO Negative (Negative); EDUANITRATE Negative (Negative); EDUAPH 6.5; EDUAPROTEIN 1+ (Negative); EDUASPGRAVITY 1.025; EDUAUROBILI 0.2
[2024-06-04 10:48] LABS: EDCOVIDSCREEN Negative (Negative)
== END 2024-06-04 10:48 | disposition home or self-care (01) ==
PROVIDERS: Emergency Provider Nurse Practitioner Family; PCP Family Medicine
DX: J10.1 Influenza due to other identified influenza virus with other respiratory manifestations (principal); Z20.822 Contact with and (suspected) exposure to COVID-19; K21.9 Gastro-esophageal reflux disease without esophagitis; I10 Essential (primary) hypertension; J45.909 Unspecified asthma, uncomplicated; Z87.891 Personal history of nicotine dependence
CPT/HCPCS: 81003; 87426; 87804; 99213; G0463

== ENCOUNTER 2024-07-06 10:36 | Emergency (ER) | payer OTHER, SELFPAY ==
[2024-07-06 10:46] VITALS: BP 120/60; PULSE 63; RESP 18; TEMP 36.7; O2SAT 99
--- NOTE | 2024-07-06 11:25 | ED_ITS ---
HPI - URI/Sore Throat General Chief Complaint: Upper Respiratory Infection Stated Complaint: Sinus infection History of Present Illness HPI Narrative: 58-year-old male presented for complaint of nasal congestion and sinus pressure, headache and cough. Onset 2 weeks. Endorses influenza last month which had resolved but the sinus congestion has worsened. Using ocei-ewo-uljycgo nasal spray from [employer] [facility] and antihistamine. Denies shortness of breath, wheezing, nausea, vomiting, diarrhea, fevers or chills. Also using inhaler more frequently. Related Data Home Medications ?Medication ?Instructions ?Recorded ?Confirmed ?Last Taken ?Type omeprazole 20 mg capsule,delayed 20 mg PO BID 01/01/20 06/04/24 01/08/22 08:00 History release Allergies Allergy/AdvReac Type Severity Reaction Status Date / Time No Known Allergies Allergy Verified 07/06/24 10:54 Review of Systems Review of Systems: CONSTITUTIONAL: Denies body aches, fever, chills, or sweats. EYES: Denies visual changes, redness, or discharge. ENT: reports rhinorrhea, congestion, denies otalgia. CARDIOVASCULAR: Denies chest pain, palpitations, or edema. RESPIRATORY: Denies dyspnea. GASTROINTESTINAL: Denies abdominal pain, nausea, vomiting, or diarrhea. SKIN: Denies rash, itching, or wounds. MUSCULOSKELETAL: Denies back pain, joint pain, or myalgia. NEUROLOGIC: reports headache PMFSH Past Medical History Medical History BMI 36.0-36.9,adult Snoring likely JAMAAL based on H&P GERD (gastroesophageal reflux disease) Ulcerative colitis Pericarditis Kidney stones BMI 37.0-37.9, adult Asthma Hypertension Surgical History Surgical History History of laparoscopic cholecystectomy 01/08/2022 - laparoscopic cholecystectomy with laparoscopic-guided Bandar-Cut core biopsy of right lobe liver Family History Family History Father No problems noted. Mother Hypertension Sibling Rheumatoid arthritis Social History Social History Social History: patient denies use of alcohol cigarettes or illicit drugs. 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 Gender identity (if verbalized by the patient): Male Sexual Orientation (if Verbalized by the Patient): Straight or Heterosexual Spiritual care concerns: No Exam Narrative: GENERAL: well-appearing, no acute distress. EYES: conjunctivae clear ENT: Mucous membranes moist. Nasal congestion. TM pearly aaron with normal light reflex bilaterally; no tragal tenderness. Oropharynx erythematous without lesions. No drooling, no hoarseness, no trismus, uvula midline. No tripod positioning, hot potato voice, or soft palate swelling. NECK: Supple. CHEST: Clear to auscultation, breath sounds equal. No respiratory distress, speaks in full sentences. 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 HEART: Regular rate and rhythm. No murmur heard. SKIN: Warm, dry, no rash. NEURO: Alert and oriented x3. Course Course Emergency Course: Patient is aware of diagnosis, understands and agrees to treatment plan. Anticipatory guidance given. Patient agrees to follow-up as directed and is aware of reasons to seek care at the emergency department. Portions of this record may have been created with voice recognition software Level of Care: Express Care Visit Vital Signs Vital signs: Vital Signs Temperature 98.0 F 07/06/24 10:46 Pulse Rate 63 07/06/24 10:46 Respiratory Rate 18 07/06/24 10:46 Blood Pressure 120/60 07/06/24 10:46 Pulse Oximetry 99 07/06/24 10:46 Oxygen Delivery Room Air 07/06/24 10:46 Temperature 98.0 F 07/06/24 10:46 Pulse Rate 63 07/06/24 10:46 Respiratory Rate 18 07/06/24 10:46 Blood Pressure 120/60 07/06/24 10:46 Pulse Oximetry 99 07/06/24 10:46 Oxygen Delivery Room Air 07/06/24 10:46 MDM - URI/Sore Throat MDM Narrative Medical decision making narrative: Discussed physical exam findings. Discussed physical exam findings. Advised supportive measures and signs/symptoms to go to the ER. Pt is appropriate for outpt treatment and f/u. Advise supportive treatments. Patient is appropriate for outpatient treatment and follow-up. Differential Diagnosis Differential diagnosis: Likely upper respiratory infection, viral infection and pharyngitis Discharge Plan Discharge Clinical Impression: Sinusitis Patient Disposition: Home, Self-Care Condition: Stable Instructions: Antibiotic Form, Sinusitis (ED) Additional Instructions: Take antibiotic as directed Recommendations: Flonase spray and Zyrtec (or Claritin/Mila). You can use Afrin spray for 3 days max then discard. Also saline mist throughout the day over the counter Cough syrup may cause drowsiness; avoid driving or take it at night time. Coricidin HBP if you have high blood pressure. Tylenol 1000mg every 8 hours as needed for pain Symptomatic treatment includes: rest, fluids, and increase humidity of the air at home. Follow up with your primary care provider in 1 week. Go to the ER for worsening symptoms or concerns. Patient Language: Portuguese Prescriptions: New prednisone 50 mg tablet 50 mg PO DAILY Qty: 5 0RF albuterol sulfate 90 mcg/actuation HFA aerosol inhaler 2 inh inhalation QID PRN (Reason: shortness of breath or wheezing) Qty: 8.5 0RF amoxicillin-pot clavulanate 875-125 mg tablet 1 tablet PO Q12H 7 Days Qty: 14 0RF No Action benzonatate 200 mg capsule 200 mg PO TID PRN (Reason: cough) Qty: 20 0RF ondansetron 4 mg tablet,disintegrating 4 mg PO Q8H PRN (Reason: nausea and vomiting) Qty: 12 0RF omeprazole 20 mg capsule,delayed release(DR/EC) 20 mg PO BID fluticasone propionate [Flonase Allergy Relief] 50 mcg/actuation spray,suspension 1 spray intranasal DAILY Qty: 16 0RF Rx Instructions: administer into each nostril Airsupra 90-80 mcg/actuation HFA aerosol inhaler 2 inh inhalation 6XD PRN (Reason: shortness of breath) Qty: 5.9 4RF sertraline 50 mg tablet See Rx Instructions .ROUTE .COMPLEX Qty: 90 0RF Dose Instruction: TAKE 1 TABLET BY MOUTH EVERY DAY Rx Instructions: TAKE 1 TABLET BY MOUTH EVERY DAY at hs cholecalciferol (vitamin D3) 1,250 mcg (50,000 unit) capsule 1,250 mcg PO WEEKLY Qty: 8 0RF metoprolol succinate 25 mg tablet extended release 24 hr 25 mg PO DAILY Qty: 90 0RF Rx Instructions: takes at hs Follow-up/Referrals: Micheal Gross MD [Primary Care Provider] - Stand Alone Forms: Work/School Release IP Time of Disposition: 11:34
== END 2024-07-06 11:37 | disposition home or self-care (01) ==
PROVIDERS: Emergency Provider Nurse Practitioner Family; PCP Family Medicine
DX: J32.9 Chronic sinusitis, unspecified (principal); Z87.891 Personal history of nicotine dependence; I10 Essential (primary) hypertension; J45.909 Unspecified asthma, uncomplicated; K21.9 Gastro-esophageal reflux disease without esophagitis
CPT/HCPCS: 99213; G0463

== ENCOUNTER 2024-09-08 16:21 | Emergency (ER) | payer OTHER, SELFPAY ==
[2024-09-08 16:35] VITALS: BP 155/83; PULSE 71; RESP 16; TEMP 36.6; O2SAT 99
[2024-09-08 16:44] LABS: EDSTREPNEGPOS1 Negative (Negative)
--- NOTE | 2024-09-08 16:57 | ED_ITS ---
HPI - URI/Sore Throat General Chief Complaint: Upper Respiratory Infection Stated Complaint: SORE THROAT/EARACHE Source: patient and RN notes reviewed Mode of arrival: ambulatory Limitations: no limitations History of Present Illness HPI Narrative: 58-year-old male presents Express Care complaining of upper respiratory symptoms for 2 weeks. Patient reports having congestion, productive cough, yellow nasal discharge, sore throat, ear fullness for last 2 weeks without relief. Patient said he has been using [id number] Flonase for symptoms. Patient denies any fevers, chills cough, body aches, chest pain, shortness of breath. Related Data Home Medications ?Medication ?Instructions ?Recorded ?Confirmed ?Last Taken ?Type omeprazole 20 mg capsule,delayed 20 mg PO BID 01/01/20 06/04/24 01/08/22 08:00 History release Allergies Allergy/AdvReac Type Severity Reaction Status Date / Time No Known Allergies Allergy Verified 07/06/24 10:54 Review of Systems Review of Systems: CONSTITUTIONAL: Denies fever, chills, or sweats. EYES: Denies visual changes, redness, or discharge. ENT: Denies rhinorrhea, or otalgia. Positive for sore throat, congestion, ear fullness. CARDIOVASCULAR: Denies chest pain, palpitations, or edema. RESPIRATORY: Positive for cough. Negative for dyspnea. GASTROINTESTINAL: Denies abdominal pain, nausea, vomiting, or diarrhea. GENITOURINARY: Denies dysuria or hematuria. SKIN: Denies rash or itching. MUSCULOSKELETAL: Denies back pain, joint pain, or myalgia. NEUROLOGIC: Denies headache, numbness, or weakness. PSYCHIATRIC: Denies anxiety or depression. All other systems reviewed are negative, except as documented in HPI. [facility], LAT[facility] Past Medical History Medical History BMI 36.0-36.9,adult Snoring likely JAMAAL based on H&P GERD (gastroesophageal reflux disease) Ulcerative colitis Pericarditis Kidney stones BMI 37.0-37.9, adult Asthma Hypertension Surgical History Surgical History History of laparoscopic cholecystectomy 01/08/2022 - laparoscopic cholecystectomy with laparoscopic-guided Bandar-Cut core biopsy of right lobe liver Family History Family History Father No problems noted. Mother Hypertension Sibling Rheumatoid arthritis Social History Social History Social History: patient denies use of alcohol cigarettes or illicit drugs. 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 Gender identity (if verbalized by the patient): Male Sexual Orientation (if Verbalized by the Patient): Straight or Heterosexual Spiritual care concerns: No Comments At the time of my signature, I reviewed and agree with the nursing past medical, surgical, social, and family history. There is no relevant family history pertinent to the patient complaint. Exam Narrative: GENERAL: This is a well-nourished, well-developed adult, in no apparent distress. They are non ill-appearing, nontoxic appearing. HEAD: normocephalic, atraumatic. EYES: Sclera clear/white. Conjunctiva normal. Vision is grossly intact. Extraocular movements intact EARS: External ears normal, auditory canals clear with excessive cerumen it appears dry, no impaction. TMs normal without perforation. Hearing grossly intact. NOSE: External nose normal with no obvious nasal discharge, nasal turbinates erythematous bilaterally with yellow discharge present, THROAT: Mucous membranes moist, posterior pharynx clear, without erythema or swelling. Uvula midline. Postnasal drip present. NECK: Neck supple, non-tender without lymphadenopathy, masses or thyromegaly. CARDIOVASCULAR: Regular rate and rhythm without murmurs, gallops, or rubs. RESPIRATORY: Clear to auscultation. Breath sounds equal bilaterally. No wheezes, rales, or rhonchi. SKIN: warm, Dry, intact with no suspicious lesions or rash, good texture and turgor. NEURO: awake, alert, and oriented to person, place and time. There were no obvious focal neurologic abnormalities. EXTREMITIES: No joint tenderness, effusion, or edema noted. BACK: Nontender without deformity. No CVA tenderness. Course Course Emergency Course: Portions of this record may have been created with voice recognition software Level of Care: Express Care Visit Vital Signs Vital signs: Vital Signs Oxygen Delivery Room Air 09/08/24 16:28 Temperature 97.9 F 09/08/24 16:35 Pulse Rate 71 09/08/24 16:35 Respiratory Rate 16 09/08/24 16:35 Blood Pressure 155/83 H 09/08/24 16:35 Pulse Oximetry 99 09/08/24 16:35 Oxygen Delivery Room Air 09/08/24 16:28 Reviewed MDM - URI/Sore Throat MDM Narrative Medical decision making narrative: Rapid strep negative. Throat culture pending. Given patient's length is symp toms it is likely the patient has a bacterial sinusitis. Patient has recently bone multiple courses of Augmentin. Will try doxycycline instead. Advised patient to use [id number] Debrox for his dry earwax. Discussed physical exam findings. Advised supportive measures and signs/symptoms to go to the ER. Pt is appropriate for outpt treatment and f/u. Differential Diagnosis Differential diagnosis: Likely upper respiratory infection, otitis media and sinusitis Lab Data Attestation: I reviewed the patient's lab results. Labs: Lab Results 09/08/24 Range/Units 16:43 POC Grp A Strep Screen Negative (Negative) Critical Care Time Critical Care Time Critical Care Time: No Discharge Plan Discharge Clinical Impression: Sinusitis Qualifiers: Sinusitis location: unspecified location Chronicity: acute Recurrence: non- recurrent Qualified Code(s): J01.90 - Acute sinusitis, unspecified Patient Disposition: Home Condition: Stable Instructions: Antibiotic Form, Sinusitis (ED) Additional Instructions: Your rapid strep was negative. Throat culture will be sent off and is positive you will be contacted. It is likely to have a sinus infection. Take doxycycline as directed. Please wear sunscreen for going to be outside while taking doxycycline. You may also use Debrox [id number] to help soften the earwax your ears. You may do 5-10 ear drops daily for 4 days. Do not use Q- tips in your ears. Take the antibiotics as directed and complete the course even if you start to feel better. You may use a Neti pot saline rinse 3 times a day with lukewarm distilled water Continue to take Tylenol or Motrin for pain. Use a humidifier or vaporizer at night. Drink plenty of water. 8-10 glasses per day. Use flonase 2 times per day for 5 days then as needed Take mucinex 2 times per day and be sure to take with 8oz of water. Follow up with Primary provider in 3-5 days. Please go to the ER if her symptoms are worsening, he developed chest pain, shortness of breath, or any other concerns. Patient Language: Salvadorean Prescriptions: New doxycycline monohydrate 100 mg capsule 100 mg PO BID 7 Days Qty: 14 0RF No Action prednisone 50 mg tablet 50 mg PO DAILY Qty: 5 0RF albuterol sulfate 90 mcg/actuation HFA aerosol inhaler 2 inh inhalation QID PRN (Reason: shortness of breath or wheezing) Qty: 8.5 0RF amoxicillin-pot clavulanate 875-125 mg tablet 1 tablet PO Q12H 7 Days Qty: 14 0RF benzonatate 200 mg capsule 200 mg PO TID PRN (Reason: cough) Qty: 20 0RF ondansetron 4 mg tablet,disintegrating 4 mg PO Q8H PRN (Reason: nausea and vomiting) Qty: 12 0RF omeprazole 20 mg capsule,delayed release(DR/EC) 20 mg PO BID fluticasone propionate [Flonase Allergy Relief] 50 mcg/actuation spray,suspension 1 spray intranasal DAILY Qty: 16 0RF Rx Instructions: administer into each nostril Airsupra 90-80 mcg/actuation HFA aerosol inhaler 2 inh inhalation 6XD PRN (Reason: shortness of breath) Qty: 5.9 4RF sertraline 50 mg tablet See Rx Instructions .ROUTE .COMPLEX Qty: 90 0RF Dose Instruction: TAKE 1 TABLET BY MOUTH EVERY DAY Rx Instructions: TAKE 1 TABLET BY MOUTH EVERY DAY at hs metoprolol succinate 25 mg tablet extended release 24 hr 25 mg PO DAILY Qty: 90 0RF Rx Instructions: takes at hs cholecalciferol (vitamin D3) 1,250 mcg (50,000 unit) capsule 1,250 mcg PO WEEKLY Qty: 8 0RF Follow-up/Referrals: Micheal Gross MD [Primary Care Provider] - Time of Disposition: 17:04
== END 2024-09-08 17:28 | disposition home or self-care (01) ==
PROVIDERS: PCP Family Medicine
DX: J01.90 Acute sinusitis, unspecified (principal); Z87.891 Personal history of nicotine dependence; K21.9 Gastro-esophageal reflux disease without esophagitis; I10 Essential (primary) hypertension; J45.909 Unspecified asthma, uncomplicated
CPT/HCPCS: 87081; 87880; 99213; G0463

== ENCOUNTER 2024-11-05 16:40 | Emergency (ER) | payer OTHER, SELFPAY ==
[2024-11-05 16:54] VITALS: BP 130/74; PULSE 54; RESP 16; TEMP 36.7; O2SAT 98
[2024-11-05 17:04] LABS: EDUAAPPEAR Clear; EDUABILI Negative (Negative); EDUABLOOD Negative (Negative); EDUACOLOR1 Yellow; EDUAGLUCOSE Negative (Negative); EDUAKETONE Negative (Negative); EDUALEUKO Negative (Negative); EDUANITRATE Negative (Negative); EDUAPH 7.0; EDUAPROTEIN 2+ (Negative); EDUASPGRAVITY 1.030; EDUAUROBILI 0.2
--- NOTE | 2024-11-05 17:19 | ED.MALEGU ---
HPI - Male Genitourinary General Chief complaint: Urogenital-Male Stated complaint: Uti Symptoms Time Seen by Provider: 11/05/24 16:45 Source: patient and RN notes reviewed Mode of arrival: ambulatory Limitations: no limitations History of Present Illness HPI Narrative: 58-year-old male presents to the [facility] of trouble urinating for approximately 1 month. Patient reports at times he will have a normal stream urine other times he will have a weak stream of urine. Patient also reports pain with urination at times been always states sometimes the pain radiates up into his scapula. Patient denies any pain currently. Denies any burning with urination, fevers, body aches, penile discharge, abdominal pain, nausea, vomiting, diarrhea. Patient says is a history of enlarged prostate but denies taking any medications for it. Related Data Home Medications ?Medication ?Instructions ?Recorded ?Confirmed ?Last Taken ?Type omeprazole 20 mg capsule,delayed 20 mg PO BID 01/01/20 06/04/24 01/08/22 08:00 History release Allergies Allergy/AdvReac Type Severity Reaction Status Date / Time No Known Allergies Allergy Verified 11/05/24 17:03 Review of Systems Review of Systems: CONSTITUTIONAL: Denies fever, chills, or sweats. EYES: Denies visual changes, redness, or discharge. ENT: Denies rhinorrhea, congestion, sore throat, or otalgia. CARDIOVASCULAR: Denies chest pain, palpitations, or edema. RESPIRATORY: Denies cough or dyspnea. GASTROINTESTINAL: Denies abdominal pain, nausea, vomiting, or diarrhea. GENITOURINARY: Denies dysuria or hematuria. Positive for increased frequency and difficulty urinating. SKIN: Denies rash or itching. MUSCULOSKELETAL: Denies back pain, joint pain, or myalgia. NEUROLOGIC: Denies headache, numbness, or weakness. PSYCHIATRIC: Denies anxiety or depression. All other systems reviewed are negative, except as documented in HPI. [facility] Past Medical History Medical History BMI 36.0-36.9,adult Snoring likely JAMAAL based on H&P GERD (gastroesophageal reflux disease) Ulcerative colitis Pericarditis Kidney stones BMI 37.0-37.9, adult Asthma Hypertension Surgical History Surgical History History of laparoscopic cholecystectomy 01/08/2022 - laparoscopic cholecystectomy with laparoscopic-guided Bandar-Cut core biopsy of right lobe liver Family History Family History Father No problems noted. Mother Hypertension Sibling Rheumatoid arthritis Social History Social History Social History: patient denies use of alcohol cigarettes or illicit drugs. 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 Gender identity (if verbalized by the patient): Male Sexual Orientation (if Verbalized by the Patient): Straight or Heterosexual Spiritual care concerns: No Comments At the time of my signature, I reviewed and agree with the nursing past medical, surgical, social, and family history. There is no relevant family history pertinent to the patient complaint. Exam Narrative: GENERAL: This is a well-nourished, well-developed adult, in no apparent distress. They are non ill-appearing, nontoxic appearing. Patient morbidly obese. Physical exam limited due to large body habitus. HEAD: normocephalic, atraumatic. EYES: Sclera clear/white. Conjunctiva normal. Vision is grossly intact. Extraocular movements intact EARS: External ears normal, Hearing grossly intact. NOSE: External nose normal THROAT: Mucous membranes NECK: Neck supple, CARDIOVASCULAR: Regular rate and rhythm without murmurs, gallops, or rubs. RESPIRATORY: Clear to auscultation. Breath sounds equal bilaterally. No wheezes, rales, or rhonchi. GASTROINTESTINAL: Abdomen large, round, soft, non-tender, nondistended. Bowel sounds are active. No hepato-splenomegaly, or palpable masses. No guarding or rigidity., rebound tenderness SKIN: warm, Dry, intact with no suspicious lesions or rash, good texture and turgor. NEURO: awake, alert, and oriented to person, place and time. There were no obvious focal neurologic abnormalities. EXTREMITIES: No joint tenderness, effusion, or edema noted. BACK: Nontender without deformity. No CVA tenderness. Course Course Emergency Course: Portions of this record may have been created with voice recognition software Level of Care: Express Care Visit Vital Signs Vital signs: Vital Signs Temperature 98.1 F 11/05/24 16:54 Pulse Rate 54 L 11/05/24 16:54 Respiratory Rate 16 11/05/24 16:54 Blood Pressure 130/74 11/05/24 16:54 Pulse Oximetry 98 11/05/24 16:54 Temperature 98.1 F 11/05/24 16:54 Pulse Rate 54 L 11/05/24 16:54 Respiratory Rate 16 11/05/24 16:54 Blood Pressure 130/74 11/05/24 16:54 Pulse Oximetry 98 11/05/24 16:54 Reviewed MDM - Male Genitourinary MDM Narrative Medical decision making narrative: Urine dipstick is 2+ protein otherwise no evidence of infection. Cultures pending. Patient's symptoms likely are related to his prostate. No evidence of urinary retention on exam, no peritoneal findings. Offered patient ER transfer further evaluation management of his symptoms the patient declined. Patient said he will have a close follow-up with his PCP for further evaluation. Discussed physical exam findings. Advised supportive measures and signs/symptoms to go to the ER. Pt is appropriate for outpt treatment and f/u. Differential Diagnosis Differential diagnosis: Likely urinary tract infection, prostatitis and other (BPH, urinary retention) Lab Data Attestation: I reviewed the patient's lab results. Labs: Lab Results 11/05/24 Range/Units 17:01 POC Urine Color Yellow POC Urine Clarity Clear POC Urine pH 7.0 POC Ur Specif [place] 1.030 POC Urine Protein 2+ (Negative) POC Ur Glucose (UA) Negative (Negative) POC Urine Ketones Negative (Negative) POC Urine Blood Negative (Negative) POC Urine Nitrite Negative (Negative) POC Urine Bilirubin Negative (Negative) POC Urine Urobilinogen 0.2 POC U Leukocyte Esteras Negative (Negative) Critical Care Time Critical Care Time Critical Care Time: No Discharge Plan Discharge Clinical Impression: Increased urinary frequency Patient Disposition: Home Condition: Stable Instructions: Dysuria (ED) Additional Instructions: Your urine will be sent of for a culture to determine if bacteria is causing your symptoms. If the culture shows a UTI, you will be notified and an antibiotic will be called in for you. Please follow-up with your PCP in 3-5 days for further evaluation management your symptoms. Please go to the ER if he develop worsening abdominal pain, fevers, testicular pain/swelling, unable to urinate, or any other serious concerns. Patient Language: Occitan Prescriptions: No Action omeprazole 20 mg capsule,delayed release(DR/EC) 20 mg PO BID Airsupra 90-80 mcg/actuation HFA aerosol inhaler 2 inh inhalation 6XD PRN (Reason: shortness of breath) Qty: 5.9 4RF cholecalciferol (vitamin D3) 1,250 mcg (50,000 unit) capsule 1,250 mcg PO WEEKLY Qty: 8 0RF sertraline 50 mg tablet See Rx Instructions .ROUTE .COMPLEX Qty: 90 0RF Dose Instruction: TAKE 1 TABLET BY MOUTH EVERY DAY Rx Instructions: TAKE 1 TABLET BY MOUTH EVERY DAY at hs metoprolol succinate 25 mg tablet extended release 24 hr 25 mg PO DAILY Qty: 90 0RF Rx Instructions: takes at hs albuterol sulfate 90 mcg/actuation HFA aerosol inhaler 2 inh inhalation QID PRN (Reason: shortness of breath or wheezing) Qty: 8.5 3RF Follow-up/Referrals: PHYSICIAN,SUPER[employer] [Primary Care Provider] - Time of Disposition: 17:16
== END 2024-11-05 17:21 | disposition home or self-care (01) ==
DX: R35.0 Frequency of micturition (principal); Z87.891 Personal history of nicotine dependence; I10 Essential (primary) hypertension; J45.909 Unspecified asthma, uncomplicated; K21.9 Gastro-esophageal reflux disease without esophagitis
CPT/HCPCS: 81003; 87086; 99213; G0463

== ENCOUNTER 2024-12-23 15:57 | Emergency (ER) | payer OTHER, SELFPAY ==
--- NOTE | 2024-12-23 16:06 | ED.GENADULT ---
HPI - General Adult General Chief complaint: Upper Respiratory Infection Stated complaint: SINUS PAIN Source: patient Mode of arrival: ambulatory Limitations: no limitations History of Present Illness HPI narrative: Pt is a 59 y/o male presenting with c/o URI sx. Sx reported include sinus congestion/pressure, postnasal drip, rhinorrhea, epistaxis, fatigue, intermittent dizziness and nausea. Sx began 10 days ago and have progressively worsened since onset. States his daughter had COVID + sinusitis earlier this month. 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 No additional complaints. Related Data Home Medications ?Medication ?Instructions ?Recorded ?Confirmed ?Last Taken ?Type omeprazole 20 mg capsule,delayed 20 mg PO BID 01/01/20 12/23/24 01/08/22 08:00 History release Allergies Allergy/AdvReac Type Severity Reaction Status Date / Time No Known Allergies Allergy Verified 12/23/24 15:59 Review of Systems Review of Systems: CONSTITUTIONAL: Denies body aches, fever, chills, or sweats. EYES: Denies visual changes, redness, or discharge. ENT: denies sore throat, or otalgia. CARDIOVASCULAR: Denies chest pain, palpitations, or edema. RESPIRATORY: Denies cough or dyspnea. GASTROINTESTINAL: Denies abdominal pain, vomiting, or diarrhea. GENITOURINARY: Denies dysuria or hematuria. SKIN: Denies rash, itching, or wounds. MUSCULOSKELETAL: Denies back pain, joint pain, or myalgia. NEUROLOGIC: Denies headache, numbness, tingling, or weakness. PSYCH: Denies depression or anxiety. All systems reviewed & are unremarkable except as noted in HPI and below PMFSH Past Medical History Medical History BMI 36.0-36.9,adult Snoring likely JAMAAL based on H&P GERD (gastroesophageal reflux disease) Ulcerative colitis Pericarditis Kidney stones BMI 37.0-37.9, adult Asthma Hypertension Surgical History Surgical History History of laparoscopic cholecystectomy 01/08/2022 - laparoscopic cholecystectomy with laparoscopic-guided Bandar-Cut core biopsy of right lobe liver Family History Family History Father No problems noted. Mother Hypertension Sibling Rheumatoid arthritis Social History Social History Social History: patient denies use of alcohol cigarettes or illicit drugs. 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 Gender identity (if verbalized by the patient): Male Sexual Orientation (if Verbalized by the Patient): Straight or Heterosexual Spiritual care concerns: No Exam Narrative: GENERAL: Well-appearing, morbidly obese, well-nourished, and in no acute distress. HEAD: Normocephalic, atraumatic. EYES: EOMI. No redness or drainage. Conjunctivae normal. ENT: Mucous membranes pink and moist. Nares clear. No rhinorrhea. TMs normal bilaterally. Throat normal. Uvula midline. Sinuses are nontender to palpation. NECK: Normal AROM. Supple. No lymphadenopathy. CHEST: No respiratory distress. Clear to auscultation. HEART: Regular rate and rhythm. No murmur appreciated. Normal peripheral pulses. ABDOMEN: Soft, nontender, nondistended, normal active bowel sounds. MUSCULOSKELETAL: No bony tenderness. EXTREMITIES: Normal range of motion. No edema. SKIN: Warm, dry, no rash. Capillary refill normal. Normal skin turgor. NEURO: No focal deficits. Alert and oriented x3. Gait steady. PSYCH: Normal affect. No signs of depression or anxiety. Course Course Level of Care: Express Care Visit Vital Signs Vital signs: Vital Signs Temperature 97.5 F L 12/23/24 16:07 Pulse Rate 63 12/23/24 16:07 Respiratory Rate 16 12/23/24 16:07 Blood Pressure 139/78 12/23/24 16:07 Pulse Oximetry 100 12/23/24 16:07 Temperature 97.5 F L 12/23/24 16:07 Pulse Rate 63 12/23/24 16:07 Respiratory Rate 16 12/23/24 16:07 Blood Pressure 139/78 12/23/24 16:07 Pulse Oximetry 100 12/23/24 16:07 Medical Decision Making Vital Signs Vital Signs: Vital Signs Temperature 97.5 F L 12/23/24 16:07 Pulse Rate 63 12/23/24 16:07 Respiratory Rate 16 12/23/24 16:07 Blood Pressure 139/78 12/23/24 16:07 Pulse Oximetry 100 12/23/24 16:07 Temperature 97.5 F L 12/23/24 16:07 Pulse Rate 63 12/23/24 16:07 Respiratory Rate 16 12/23/24 16:07 Blood Pressure 139/78 12/23/24 16:07 Pulse Oximetry 100 12/23/24 16:07 Discharge Plan Discharge Clinical Impression: Essential (primary) hypertension Sinusitis Qualifiers: Sinusitis location: other Chronicity: acute Recurrence: non-recurrent Qualified Code(s): J01.80 - Other acute sinusitis Patient Disposition: Home Condition: Stable Instructions: Antibiotic Form, Sinusitis (ED) Patient Language: Angolan Prescriptions: New amoxicillin-pot clavulanate 875-125 mg tablet 1 tablet PO Q12H Qty: 20 0RF prednisone 20 mg tablet 60 mg PO DAILY Qty: 15 0RF No Action omeprazole 20 mg capsule,delayed release(DR/EC) 20 mg PO BID cholecalciferol (vitamin D3) 1,250 mcg (50,000 unit) capsule 1,250 mcg PO WEEKLY Qty: 8 0RF sertraline 50 mg tablet See Rx Instructions .ROUTE .COMPLEX Qty: 90 0RF Dose Instruction: TAKE 1 TABLET BY MOUTH EVERY DAY Rx Instructions: TAKE 1 TABLET BY MOUTH EVERY DAY at hs metoprolol succinate 25 mg tablet extended release 24 hr 25 mg PO DAILY Qty: 90 0RF Rx Instructions: takes at hs albuterol sulfate 90 mcg/actuation HFA aerosol inhaler 2 inh inhalation QID PRN (Reason: shortness of breath or wheezing) Qty: 8.5 3RF Follow-up/Referrals: Micheal Gross MD [Primary Care Provider, Family Practice] - 12/24/24 Time of Disposition: 16:15
[2024-12-23 16:07] VITALS: BP 139/78; PULSE 63; RESP 16; TEMP 36.4; O2SAT 100
== END 2024-12-23 16:19 | disposition home or self-care (01) ==
PROVIDERS: Emergency Provider Registered Nurse; PCP Family Medicine
DX: I10 Essential (primary) hypertension (principal); J01.80 Other acute sinusitis; Z87.891 Personal history of nicotine dependence
CPT/HCPCS: 99213; G0463

== ENCOUNTER 2025-04-07 16:19 | Emergency (ER) | payer OTHER, SELFPAY ==
--- NOTE | 2025-04-07 16:27 | ED.URI ---
HPI - URI/Sore Throat General Chief Complaint: Wound/Laceration Stated Complaint: R WRIST PAIN & SINUS CONGESTION Time Seen by Provider: 04/07/25 16:40 Source: patient Mode of arrival: ambulatory Limitations: no limitations History of Present Illness HPI Narrative: Jignesh is a 59 year old male patient presenting to the clinic today with c/o right wrist pain x2 months and possible sinus infections x 2-3 weeks. States he has had no injury to the right wrist but the right wrist feel stiff in has pain over the radius, proximal thumb, and at times over the ulnar aspect of the right wrist. Pain does radiate into his hand at times. Has decreased gusset folder strength. 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 He also reports he is blowing out yellow/bloody nasal drainage and having sinus pressure and headache. No fever, chills, body aches, sore throat, chest pain, or shortness of breath. Has not been seen for his symptoms by his PCP. Has been taking some [id number] sinus medication. Related Data Home Medications ?Medication ?Instructions ?Recorded ?Confirmed ?Last Taken ?Type omeprazole 20 mg capsule,delayed 20 mg PO BID 01/01/20 04/07/25 01/08/22 08:00 History release Allergies Allergy/AdvReac Type Severity Reaction Status Date / Time No Known Allergies Allergy Verified 04/07/25 16:26 Review of Systems Review of Systems: Pertinent positives per HPI. Patient denies any fever, chills, rash, visual changes, dizziness, shortness of breath, chest pain, palpitations, nausea, vomiting, diarrhea, constipation, abdominal pain, or any urinary issues. [facility] Past Medical History Medical History BMI 36.0-36.9,adult Snoring likely JAMAAL based on H&P GERD (gastroesophageal reflux disease) Ulcerative colitis Pericarditis Kidney stones BMI 37.0-37.9, adult Asthma Hypertension Surgical History Surgical History History of laparoscopic cholecystectomy 01/08/2022 - laparoscopic cholecystectomy with laparoscopic-guided Bandar-Cut core biopsy of right lobe liver Family History Family History Father No problems noted. Mother Hypertension Sibling Rheumatoid arthritis Social History Social History Social History: patient denies use of alcohol cigarettes or illicit drugs. 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 Gender identity (if verbalized by the patient): Male Sexual Orientation (if Verbalized by the Patient): Straight or Heterosexual Spiritual care concerns: No Comments At the time of my signature, I reviewed and agree with the nursing past medical, surgical, social, and family history. There is no relevant family history pertinent to the patient complaint. Exam Narrative: General: Well-developed, obese, in no apparent distress Head: Normocephalic, atraumatic Eyes: Pupils equally round and reactive to light bilaterally, EOM intact, sclera and conjunctive clear, no discharge, lids normal Ears: TMs intact and congested, ear canals clear, no drainage, grossly hearing normal. Nose: Nares patent, yellow nasal with dried bloody discharge bilateral nares, moderate to severe inflammation, maxillary and frontal sinus tenderness. Mouth: Oral pharynx mildly red without lesions or masses, good dentition, MMM. Postnasal drip Neck: Supple, trachea midline, no enlargement of anterior or posterior cervical nodes, no thyroid masses or goiter palpable. Cardio: Regular rate and rhythm, s1 and s2 normal, no murmur appreciated. 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 peripheral pulse strong, no edema, no cyanosis, normal gait and station obvious deformity, swelling, bruising of the right wrist, tenderness to palpation over the proximal thumb and radius as well as the ulnar aspect of the wrist, limited flexion extension of the wrist due to pain/stiffness, negative Tinel's, negative Phalen's, negative Waleska's, right hand grasps slightly weaker than the left hand physics technician Course Course Level of Care: Express Care Visit Vital Signs Vital signs: Vital Signs Temperature 36.2 C L 04/07/25 16:36 Pulse Rate 59 L 04/07/25 16:36 Respiratory Rate 16 04/07/25 16:36 Blood Pressure 151/86 H 04/07/25 16:36 Pulse Oximetry 99 04/07/25 16:36 Temperature 36.2 C L 04/07/25 16:36 Pulse Rate 59 L 04/07/25 16:36 Respiratory Rate 16 04/07/25 16:36 Blood Pressure 151/86 H 04/07/25 16:36 Pulse Oximetry 99 04/07/25 16:36 MDM MDM Narrative Medical decision making narrative: At the time of visit patient is resting comfortably on the exam table. Patient appears to be nontoxic. C/o right wrist pain x2 months and possible sinus infections x 2-3 weeks. States he has had no injury to the right wrist but the right wrist feel stiff in has pain over the radius, proximal thumb, and at times over the ulnar aspect of the right wrist. Pain does radiate into his hand at times. Has decreased gusset folder strength. 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 He also reports he is blowing out yellow/bloody nasal drainage and having sinus pressure and headache. No fever, chills, body aches, sore throat, chest pain, or shortness of breath. Has not been seen for his symptoms by his PCP. Has been taking some [id number] sinus medication. On exam patient has bilateral TMs intact and congested, yellow nasal drainage with blood in bilateral nares with moderate to severe anterior turbinate inflammation, oral pharynx mildly red with postnasal drip, no cervical lymphadenopathy, heart rates regular rate and rhythm, lung sounds are clear, no obvious deformity, swelling, bruising of the right wrist, tenderness to palpation over the proximal thumb and radius as well as the ulnar aspect of the wrist, limited flexion extension of the wrist due to pain/stiffness, negative Tinel's, negative Phalen's, negative Waleska's, right hand grasps slightly weaker than the left hand physics technician. Plan: I suspect patient has acute right wrist pain-likely arthritis versus tendinitis and bacterial rhinosinusitis. Prescription for Medrol Dosepak and Augmentin was sent to the pharmacy. No imaging of the right wrist is needed at this time. Recommend wearing a wrist splint while at work and when sleeping at night time. Follow-up with PCP for further evaluations if symptoms persist. Supportive measures were discussed with the patient and they voiced understanding discharge instructions and agrees to treatment plan. Return precautions reviewed Differential Diagnosis Differential Diagnosis: Differential diagnostic considerations for upper respiratory infection include upper respiratory infection, croup, otitis media, sinusitis, viral infection, bronchitis, influenza, pharyngitis, strep, uvulitis. Differential diagnostic considerations for upper extremity injury include sprain/strain of wrist, fracture of wrist, finger sprain, dislocation of finger, fracture of hand, dislocation of shoulder, fracture of humerus, fracture of clavicle, laceration, tendon injury, carpal tunnel syndrome. Discharge Plan Discharge Clinical Impression: Acute bacterial rhinosinusitis Acute wrist pain Qualifiers: Laterality: right Qualified Code(s): M25.531 - Pain in right wrist Patient Disposition: Home Condition: Stable Instructions: Antibiotic Form, Rhinosinusitis (ED), Tendinitis (ED), Wrist Sprain (ED) Additional Instructions: Sinusitis discharge instructions: Take prescription medications only as prescribed-Medrol Dosepak and Augmentin Increase fluids and stay well hydrated May take Tylenol or motrin as directed on bottle for pain/fever May use Flonase 1 spray in each nare daily May take OTC antihistamines such as Zyrtec or Claritin daily as directed on bottle May apply Vicks vapor rub to chest to open sinuses Sinus rinses for congestion Cepacol spray, cough drops, throat lozenges, warm tea with honey/lemon, gargle salt water to soothe throat BRAT diet for diarrhea Clear liquids x 24 hours then advance as tolerated for nausea/vomiting Go to the ED if you develop a worsening in your condition- high fever not controlled by Tylenol or Motrin, dehydration, weakness, lethargy, shortness of breath, or chest pain. Follow up with your PCP in 3-5 days if symptoms persist. Wrist pain discharge instructions: Take Medrol Dosepak as prescribed Rest, ice, elevate, and wear wrist splint as directed Tylenol/motrin for pain as discussed. Follow up with your PCP if symptoms persist more than 1 week. Patient Language: Nepali Prescriptions: New methylprednisolone [Medrol (Boo)] 4 mg tablets,dose pack See Rx Instructions PO .COMPLEX Qty: 21 0RF Rx Instructions: orally per package directions amoxicillin-pot clavulanate 875-125 mg tablet 1 tablet PO Q12H 10 Days Qty: 20 0RF No Action omeprazole 20 mg capsule,delayed release(DR/EC) 20 mg PO BID cholecalciferol (vitamin D3) 1,250 mcg (50,000 unit) capsule 1,250 mcg PO WEEKLY Qty: 8 0RF sertraline 50 mg tablet See Rx Instructions .ROUTE .COMPLEX Qty: 90 0RF Dose Instruction: TAKE 1 TABLET BY MOUTH EVERY DAY Rx Instructions: TAKE 1 TABLET BY MOUTH EVERY DAY at hs albuterol sulfate 90 mcg/actuation HFA aerosol inhaler 2 inh inhalation QID PRN (Reason: shortness of breath or wheezing) Qty: 8.5 3RF metoprolol succinate 25 mg tablet extended release 24 hr 25 mg PO DAILY Qty: 90 0RF Rx Instructions: takes at hs Follow-up/Referrals: Micheal Gross MD [Primary Care Provider, Family Practice] Stand Alone Forms: Work/School Release IP Time of Disposition: 16:48 Quality NIHSS Nursing Documentation ED NIHSS nursing documentation: reviewed/agree
[2025-04-07 16:36] VITALS: BP 151/86; PULSE 59; RESP 16; TEMP 36.2; O2SAT 99
== END 2025-04-07 16:51 | disposition home or self-care (01) ==
PROVIDERS: Emergency Provider Nurse Practitioner Family; PCP Family Medicine
DX: J01.90 Acute sinusitis, unspecified (principal); M25.531 Pain in right wrist; I10 Essential (primary) hypertension; J45.909 Unspecified asthma, uncomplicated; K21.9 Gastro-esophageal reflux disease without esophagitis; Z87.891 Personal history of nicotine dependence
CPT/HCPCS: 99213; G0463